=== PATIENT | female | born 1965 | race Asian ===

== ENCOUNTER 2025-04-09 06:24 | Day surgery (SDC) | payer OTHER ==
[~2025-04-09] VITALS: Ht 149.9 cm; Wt 69.1 kg
[~2025-04-09 06:24] MED LIST: ACET-784 PO; ATOR20TA PO; DAPA10TA PO; DICY20TA95 PO; GABA-529 PO; LEVO750T68 PO; METR500 PO; OMEP20CA13 PO; ONDA-243 PO; SODIUM CHLORIDE 0.9% 1,000 ML ONE
[2025-04-09] MEDS ORDERED: BENZOCAINE 20% 50 MCG/SPRAY 57 GM TP ONE (06:25)
[2025-04-09] MEDS ORDERED: LIDOCAINE 4% 50 ML SOLUTION TP ONE (06:25)
[2025-04-09] MEDS ORDERED: ALBUTEROL SULFATE 2.5 MG/0.5 ML NEB SOLUTION NEB ONE (06:25)
[2025-04-09] MEDS ORDERED: LIDOCAINE 2% 11 ML JELLY TP ONE (06:25)
[2025-04-09] MEDS ORDERED: LOSA-382 PO (06:44)
[2025-04-09] MEDS ORDERED: METF-1211 PO (06:44)
[2025-04-09] MEDS ORDERED: FAMO20 PO (06:44)
[2025-04-09 07:31] LABS: GLUCOMETER DEV NAME(LOC) SDS.; GLUCOSE,POINT OF CARE 192 MG/DL (70-110)
[2025-04-09] MEDS: SODIUM CHLORIDE 0.9% 1,000 ML IV ONE (07:31)
[2025-04-09] MEDS ORDERED: MIDAZOLAM HCL 2 MG/2 ML VIAL ONE (07:57)
[2025-04-09] MEDS ORDERED: FentaNYL CITRATE PF 100 MCG/2 ML VIAL ONE (07:57)
[2025-04-09 09:10] VITALS: PULSE 74; RESP 16; O2SAT 100
== END 2025-04-09 13:30 | disposition home or self-care (01) ==
LOC: SURGERY 06:24
PROVIDERS: ATTEND Internal Medicine Critical Care Medicine
DX: R05.3 Chronic cough (principal); J38.4 Edema of larynx; B37.0 Candidal stomatitis; I10 Essential (primary) hypertension; E11.9 Type 2 diabetes mellitus without complications; Z79.4 Long term (current) use of insulin; Z79.899 Other long term (current) drug therapy
CPT/HCPCS: 31623; 82962; 87206; 87101; 87220; 87070; 87186; 31624; 94640; 71045; 87015; J3010; J2250; J2919; J7030; 88108; J7613; Z7610